=== PATIENT | female | born 1980 | race Caucasian/White ===

== ENCOUNTER 2022-11-22 01:51 | Emergency (ER) | payer OTHER, SELFPAY ==
[2022-11-22 01:54] VITALS: BP 105/86; PULSE 81; RESP 16; TEMP 36.8; O2SAT 96; BMI 23.3
--- NOTE | 2022-11-22 02:04 | RAD_ITS ---
EXAM: XR RIGHT FINGERS, 2 OR MORE VIEWS CLINICAL INDICATION: trauma -- Third digit middle finger tip TECHNIQUE: Frontal, lateral and oblique views of the fingers of the right hand. COMPARISON: No relevant prior studies available. FINDINGS: BONES/JOINTS: See below. SOFT TISSUES: There is dorsal soft tissue swelling at the nail bed of the third digit with a bubble of gas projecting between the visible nail and immediately adjacent underlying bone on the lateral view. Apparent dressing and irregular skin margin at the tip of the finger. No underlying fracture or dislocation. No radiopaque foreign body. RAD/Finger(s) Min 2 Views IMPRESSION: Soft tissue swelling and gas. No underlying visible fracture or foreign body involving the tip of the middle finger. Electronically Signed: Deann Hamilton MD at 2:37 EDT ,
--- NOTE | 2022-11-22 02:05 | EX.ED.UPPERE ---
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 She states the tip of her right middle finger got caught between a belt. She sustained a nail avulsion to her third fingertip. This is where she has the most pain. She believes her tetanus immunization is current, less than 10 years. She denies other injury except for pain at the tip of her right third digit. Chief Complaint: Upper Extremity Injury PFSH PFSH Home Medications NK 11/22/22 [History Last Taken Unknown] Allergy/AdvReac Type Severity Reaction Status Date / Time hydromorphone [From Dilaudid] Allergy Anaphylaxis Verified 11/22/22 01:53 Iodinated Contrast Media Allergy Anaphylaxis Verified 11/22/22 01:53 ondansetron [From Zofran] Allergy Anaphylaxis Verified 11/22/22 01:53 Surgical History History of reversal of tubal ligation History of tubal ligation Social History Smoking Status: Current every day smoker tobacco type: cigarettes and e-cigarettes ROS ROS ED ROS Narrative Constitutional: No fever, no chills. HEENT: No sore throat. No neck pain. No loss of vision. No rhinorrhea. Cardiovascular: No chest pain. No palpitations. No pedal edema. Respiratory: No cough, no shortness of breath. Abdominal: No abdominal pain. No nausea. No vomiting. Genitourinary: No dysuria. No hematuria. Musculoskeletal: No myalgias. Pain under nail avulsion of right middle finger, third digit. Neurologic: No headaches. No dizziness. No lightheadedness. Skin: No rash. No change in color. Psychiatric: No depression. No anxiety. EXAM Physical Exam Narrative Exam Narrative: Afebrile. Vital signs noted. HEENT: Normocephalic. Atraumatic. PERRL, EOMI. Neck soft and supple. No point tenderness or step off. Cardiovascular: Regular rate and rhythm. No murmurs, rubs, or gallops appreciated. Respiratory: No tachypnea. Lungs clear to auscultation bilaterally. Gastrointestinal: Abdomen soft, nontender, with normoactive bowel sounds. No rebound or guarding. Neurological: Awake. Alert. Nonfocal, nonlateralizing. Skin: No rash. Normal color. No pallor. Musculoskeletal: No pedal edema. Full range of motion extremities. Positive tenderness to palpation right third middle finger tip with complete nail avulsion of fingernail, pulled away from capillary bed, no active bleeding. Additionally, on her finger pad of the third digit there is an epidermal skin avulsion without active bleeding. Const Vital Signs: 11/22/22 01:54 Temperature 98.2 F Temperature Source Oral Pulse Rate 81 Respiratory Rate 16 Blood Pressure 105/86 H Blood Pressure Mean 92 Pulse Ox 96 MDM MDM MDM Narrative Medical decision making narrative: Initially, patient declines analgesia. I do feel that the nail should be left in place to fall off naturally to keep the nailbed covered. X-rays were obtained of the third digit in 3 views and interpreted by myself independently and I see no evidence of an acute fracture. I do not feel antibiotics are indicated. I reviewed the radiology report which confirms my independent interpretation. At this point in time, her finger will be soaked and her wound was cleansed. She was told that the epidermal injury on her finger pad will dry up and fall off over time. She was also told that there is a possibility that given her nail avulsion from the bed, that the injury to the germinal matrix may cause the nail to grow back regularly or not at all. She states that it was already irregular when it grew out prior to the injury. She will take [id number] analgesics as needed and continue ice and elevation of her third digit. She will be placed in a Xeroform dressing and a large dry sterile dressing to follow-up with [facility] in the next 2 days. She was given a day off work today, the day of her injury. Return instructions were given. This is limited use of her right hand. Return instructions to the emergency department were reviewed. I do not feel she requires transfer or observation. Additionally, I do not feel that narcotic pain medications are indicated and should be written by [facility] as needed. Disposition is discharged home in stable condition. Discharge Plan Triage Chief Complaint: Upper Extremity Injury ED Provider: Francis Falocn Dx/Rx/DC Orders Clinical Impression: Avulsion of fingernail of right hand, Crushed finger, distal Instructions: ED Crush Injury, Hand, ED Detached Fingernail or Toenail Prescriptions: No Action NK Primary Care Provider: Care Physician,No Primary Referrals: [facility] [Group of Physicians] - 2 Days for wound check NOT,DEFINED [Non-Staff] - [facility] [Non-Staff] - 2 Days for wound check Disposition Disposition: Home, Self Care
[2022-11-22 03:21] VITALS: BP 110/62; PULSE 70; RESP 18; O2SAT 98
== END 2022-11-22 03:23 | disposition home or self-care (01) ==
LOC: ED 02:53
PROVIDERS: Emergency Provider Emergency Medicine; Visit Provider Emergency Medicine
DX: S67.192A Crushing injury of right middle finger, initial encounter (principal); F17.210 Nicotine dependence, cigarettes, uncomplicated; F17.290 Nicotine dependence, other tobacco product, uncomplicated; S61.302A Unspecified open wound of right middle finger with damage to nail, initial encounter; W24.1XXA Contact with transmission devices, not elsewhere classified, initial encounter; Y99.0 Civilian activity done for income or pay
CPT/HCPCS: 73140; 99283